=== PATIENT | male | born 1995 | race Caucasian/White ===

== ENCOUNTER 2021-01-11 17:32 | Outpatient (REF) | payer BC, SELFPAY ==
[2021-01-11 22:26] LABS: ALT 66 U/L (16-63); AST 22 U/L (15-37); Albumin 4.3 g/dL (3.4-5.0); Alkaline Phosphatase 99 U/L (46-116); Anion Gap 9.3 mmol/L (3-11); BUN 15 mg/dL (7-18); Bilirubin, Total 0.5 mg/dL (0.2-1.0); CO2 28.7 mmol/L (21.0-32.0); CREATININE 0.9 mg/dL (0.70-1.30); Calcium 9.2 mg/dL (8.5-10.1); Chloride 104 mmol/L (98-107); Cholesterol 216 mg/dL (<200); Glucose 94 mg/dL (74-106); HDL Cholesterol 32 mg/dL (40-60); Potassium 4.3 mmol/L (3.5-5.1); Sodium 142 mmol/L (136-145); Total Protein 7.4 g/dL (6.4-8.2); Triglyceride 469 mg/dL (<150)
[2021-01-11 22:40] LABS: LDL CHOLESTEROL 116 mg/dL (<100)
== END 2021-01-11 17:33 | disposition home or self-care (01) ==
LOC: NCHCN 17:32
PROVIDERS: PCP Nurse Practitioner Family; Visit Provider Nurse Practitioner Family
DX: Z00.00 Encounter for general adult medical examination without abnormal findings (principal); Z13.220 Encounter for screening for lipoid disorders; Z13.228 Encounter for screening for other metabolic disorders; Z51.81 Encounter for therapeutic drug level monitoring
CPT/HCPCS: 80053; 80061; 83721

== ENCOUNTER 2022-04-05 17:05 | Outpatient (REF) | payer BC, SELFPAY ==
[2022-04-05 16:13] LABS: HCT 44.1 % (40.0-50.0); HGB 15.8 g/dL (13.5-17.5); MCH 31.4 pg (27.0-33.0); MCHC 35.8 % (32.0-36.0); MCV 88 fL (80-95); MPV 10.9 fL (8.0-11.0); Platelet Count 348 10^3/uL (130-400); RBC 5.03 10^6/uL (4.36-5.78); RDW 11.9 % (11.8-14.1); WBC 6.61 10^3/uL (4.4-10.8)
[2022-04-05 16:34] LABS: ALT 68 U/L (16-63); AST 25 U/L (15-37); Albumin 4.5 g/dL (3.4-5.0); Alkaline Phosphatase 88 U/L (46-116); Anion Gap 10.1 mmol/L (3-11); BUN 23 mg/dL (7-18); Bilirubin, Total 0.7 mg/dL (0.2-1.0); CO2 26.9 mmol/L (21.0-32.0); CREATININE 0.9 mg/dL (0.70-1.30); Calcium 9.5 mg/dL (8.5-10.1); Chloride 103 mmol/L (98-107); Glucose 116 mg/dL (74-106); Sodium 140 mmol/L (136-145)
== END 2022-04-05 17:06 | disposition home or self-care (01) ==
LOC: NCHCN 17:05
PROVIDERS: PCP Nurse Practitioner Family; Visit Provider Family Medicine
DX: Z01.818 Encounter for other preprocedural examination (principal)
CPT/HCPCS: 80053; 85027